=== PATIENT | female | born 1970 | race Caucasian/White ===

== ENCOUNTER 2020-10-13 08:43 | Observation (INO) ==
[2020-10-13] MEDS ORDERED: Nitroglycerin 0.3 mg TAB SL ONE (09:15)
[2020-10-13 09:16] LABS: ABS Basophils 0.1 10^3/ul (0-0.2); ABS Eosinophils 0.2 10^3/ul (0-0.6); ABS Lymphocytes 2.2 10^3/ul (1.0-4.8); ABS Monocytes 0.4 10^3/ul (0-0.8); ABS Neutrophils 5.1 10^3/ul (1.5-7.7); Eosinophil % 2.5 %; Hematocrit 43 % (35-47); Hemoglobin 14.5 g/dL (12.0-16.0); Lymphocyte % 27.1 %; Mean Corpuscular HGB Conc 34 g/dL (31-36); Mean Corpuscular Hemoglobin 31 pg (27-31); Mean Corpuscular Volume 90 fL (80-97); Mean Platelet Volume 6.8 fL (7.4-10.4); Platelet Count 295 10^3/uL (150-450); Red Blood Count 4.72 10^6 /uL (3.70-4.87); Red Cell Distribution Width 14 % (10-15)
[2020-10-13 09:22] LABS: INR 0.98 (0.82-1.09)
[2020-10-13 09:33] LABS: Albumin 3.9 g/dL (3.2-5.2); Albumin/Globulin Ratio 1.4 (1-3); BUN/Creatinine Ratio 20.3 (8-20); Calcium 9.2 mg/dL (8.6-10.3); EGFR African American 100.1 (>60); EGFR Non-African American 82.7 (>60); Globulin 2.8 g/dL (2-4); Potassium 4.1 mmol/L (3.5-5.0); Total Bilirubin 0.4 mg/dL (0.2-1.0); Total Protein 6.7 g/dL (6.4-8.9)
[2020-10-13 09:36] LABS: Troponin I 0.01 ng/mL (<0.03)
[2020-10-13 10:51] LABS: HDL Cholesterol 56.7 mg/dL; Magnesium 1.9 mg/dL (1.9-2.7)
[2020-10-13] MEDS ORDERED: oxyCODONE SR 10 mg TAB PO PRN (11:01)
[2020-10-13 11:25] LABS: T4, Total 8.15 mcg/dL (6.09-12.23)
[2020-10-13 11:29] LABS: TSH Ultra Thyroid Stim Horm 5.58 mcIU/mL (0.34-5.60)
[2020-10-13] MEDS: Enoxaparin 40 MG/0.4 ML SYR SUBCUT SCH (12:11)
[2020-10-14] MEDS: Enoxaparin 40 MG/0.4 ML SYR SUBCUT SCH (11:33)
[2020-10-14 11:59] VITALS: BP 119/72
== END 2020-10-14 13:50 | disposition home or self-care (01) ==
LOC: MEDTELE 08:43 → ED 08:43 → MEDTELE 11:41
PROVIDERS: ADMIT Internal Medicine; ATTEND Internal Medicine